=== PATIENT | female | born 1975 | race Caucasian/White ===

== ENCOUNTER 2016-10-08 04:00 | Inpatient (IN) | payer OTHER ==
--- NOTE | ~2016-10-08 | HP ---
Unit #: [id number] #: [id number] Patient: CARRIE MCDANIELS [id number] [facility] [address] [place] [address] [id number] MR#: [id number] NAME: CARRIE MCDANIELS ROOM: P258 Age: 41 Sex: F Admission Date: 10/08/2016 : 1975 Attending Physician: Ramiro Anglin M.D. Admitting Physician: Ramiro Anglin M.D. Primary Care Physician: Primary Care Physician No HISTORY AND PHYSICAL HISTORY OF PRESENT ILLNESS Carrie is a 41 year old admitted to [address] [place] [address] with depression and verbalizing wanting to hurt herself. She has had other admissions to this facility for the same. PAST MEDICAL HISTORY 1. Patient reports a recent diagnosis of pneumonia. She was started on Levaquin approximately 4 days prior to this admission. 2. Long history of poly-illicit substance abuse. She continues to be clean and sober. 3. Obesity. 4. Asthma. 5. Hyperlipidemia. PAST SURGICAL HISTORY Cholecystectomy. ALLERGIES Penicillin. SOCIAL HISTORY Smokes 1 pack per day. Denies alcohol. Has a history of illicit drug use but denies anything currently. FAMILY HISTORY Medically noncontributory. REVIEW OF SYSTEMS CONSTITUTIONAL: No fever or chills. HEENT: Denies any sore throat, ear pain or runny nose. CARDIOVASCULAR: Denies chest pain, irregular heart rhythm or palpitations. CHEST: Denies shortness of breath or cough. No hemoptysis. GASTROINTESTINAL: Denies nausea, vomiting, diarrhea or chronic constipation. ENDOCRINE: Denies history of increased thirst or urination. No recent significant weight loss or gain. GENITOURINARY: Denies dysuria, frequency, or hematuria. SKIN: Denies any rashes. HEMATOLOGIC: Denies history of increased bleeding or bruising. MUSCULOSKELETAL: Denies any hot, swollen joints. No generalized muscle pain. NEUROLOGIC: Denies problems with vision or speech. No frequent, severe headaches. No numbness, tingling or weakness in any extremities. Denies Unit #: [id number] #: [id number] Patient: CARRIE MCDANIELS loss of bladder or bowel control. CURRENT MEDICATIONS 1. Prozac 60 mg daily. 2. Zyprexa 20 mg daily. 3. Desyrel 100 mg q.h.s. 4. Neurontin 600 mg t.i.d. 5. Combivent inhaler p.r.n. 6. Ativan p.r.n. 7. Vistaril p.r.n. 8. Milk of Magnesia p.r.n. 9. Maalox p.r.n. 10. Tylenol p.r.n. 11. Levaquin 500 mg p.o. daily. PHYSICAL EXAMINATION GENERAL: Alert, well-nourished, in no apparent distress. VITAL SIGNS: Blood pressure 113/56, heart rate 80, respirations 16, temperature 98.6. WEIGHT: 177. HEIGHT: 5 feet 5 inches. SKIN: Warm and dry without rash or lesion. HEENT: Normocephalic. TMs not viewed. Oral and nasal passages clear. Conjunctivae clear. PERRLA. EOMs intact. NECK: Supple without lymphadenopathy or thyromegaly. HEART: Regular rate and rhythm without murmur. LUNGS: Clear. ABDOMEN: Soft, nontender. : Not done. EXTREMITIES: No evidence of cyanosis, clubbing or edema. Moves all without focal deficit. NEUROLOGICAL: Grossly within normal limits. Cranial Nerves: II: Visual cantrell are intact. III, IV AND : Extraocular movements are intact. Pupils are equal, round and reactive to light. V: Facial sensation is grossly normal. VII: Facial movements and expression are normal. VIII: Auditory acuity grossly intact. IX, X: Uvula is midline. Phonation is normal. XI: Patient shrugs shoulders and turns head normally. XII: Tongue protrudes in the midline. Sensory and Motor Function: Sensory and motor sensation is grossly normal. Motor: moves all extremities well. Coordination: Gait is normal. Deep Tendon Reflexes: Intact. IMPRESSION 1. Psychiatric admission. 2. Patient was recently diagnosed with pneumonia by her report. X-ray is not available at this time. RECOMMENDATIONS PSYCHIATRIC: Per psychiatrist. MEDICAL: 1. See no contraindications to participate in facility's activities. 2. Finish regimen of Levaquin. MEDICAL PROGNOSIS Good. Unit #: [id number] #: [id number] Patient: CARRIE MCDANIELS MEDICAL CONDITION Stable. Dictated by... Vidya Edomnds P.A.-C. for Yareli Lima M.D. OTIS/dzneville HALL: 10/08/2016 19:22 TD: 10/08/2016 20:12 JOB #: [id number] HISTORY AND PHYSICAL Page 1 of 1 X Vidya Edmonds HISTORY AND PHYSICAL
== END 2016-10-09 13:00 | disposition home or self-care (01) | DRG 885 ==
LOC: P2L 12:27
DX: F33.2 Major depressive disorder, recurrent severe without psychotic features (principal); E78.5 Hyperlipidemia, unspecified; F41.9 Anxiety disorder, unspecified; F12.20 Cannabis dependence, uncomplicated; Z81.8 Family history of other mental and behavioral disorders; Z91.5 Personal history of self-harm; J45.909 Unspecified asthma, uncomplicated; E66.9 Obesity, unspecified; Z88.0 Allergy status to penicillin; Z90.49 Acquired absence of other specified parts of digestive tract; F17.210 Nicotine dependence, cigarettes, uncomplicated

== ENCOUNTER 2016-10-09 16:14 | Inpatient (IN) | payer OTHER ==
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
--- NOTE | ~2016-10-09 | DS ---
Unit #: [id number] #: [id number] Patient: ROJAS MCDANIELS [id number] [place] [address] [id number] I MR#: [id number] NAME: ROJAS MCDANIELS ROOM[facility] Age: 41 Sex: F Admission Date: 10/09/2016 : 1975 Discharge Date: 10/14/2016 Attending Physician: Alfred Jimenez M.D. Primary Care Physician: Generic Doctor Not In System DISCHARGE SUMMARY REASON FOR ADMISSION Depression and anxiety. DIAGNOSTIC STUDIES LABORATORY RESULTS: Unremarkable. HOSPITAL COURSE The patient was admitted to inpatient unit on 10/09/2016 and discharged on 10/14/2016. The patient was treated on the inpatient unit with group therapy, individual therapy, and medication management. The patient was responsive to treatment. Subsequently, the patient was discharged with a plan to follow up in outpatient program. DISCHARGE MEDICATIONS Vistaril 50 mg t.i.d. for anxiety, Thorazine 100 mg t.i.d. for mood stabilization, Neurontin 800 mg t.i.d. for mood stabilization and anxiety, Sinequan 200 mg at bedtime for sleep, Seroquel 200 mg b.i.d. for mood stabilization, and Protonix 20 mg daily for GERD. The patient needed 2 antipsychotics, Thorazine and Seroquel as the patient failed Thorazine, Seroquel, Risperdal alone and needed a combination of medication. The patient is not a candidate for Clozaril. Recommending to taper off Thorazine once the patient is stable for 6 months. DISCHARGE DIAGNOSES Psychiatric: 1. Bipolar mood disorder, recurrent, depressed, F31.9. 2. Anxiety disorder, not otherwise specified, F40.01. Secondary diagnosis: Deferred. Medical diagnosis: Gastroesophageal reflux disease. Stressors. Psychosocial stressors. DISCHARGE INSTRUCTIONS The patient is to follow up in outpatient clinic as per social services counselor. CONDITION ON DISCHARGE The patient was pleasant and cooperative. Denied any psychotic symptom or any suicidal ideation. PROGNOSIS Guarded. Unit #: [id number] #: [id number] Patient: ROJAS MCDANIELS DIET AND ACTIVITY As tolerated. Dictated by... Alfred Jimenez M.D. YANICK/migel TD: 10/14/2016 23:27 JOB #: [id number] DISCHARGE SUMMARY Page 1 of 1 X Alfred Jimenez MD DISCHARGE SUMMARY
--- NOTE | ~2016-10-09 | PN ---
Unit #: [id number] #: [id number] Patient: ROJAS MCDANIELS [id number] [facility] [address] [place] [address] [id number] I MR#: [id number] NAME: ROJAS MCDANIELS ROOM: [facility] Age: 41 Sex: F Admission Date: 10/09/2016 : 1975 Attending Physician: Alfred Jimenez M.D. Admitting Physician: Alfred Jimenez M.D. Primary Care Physician: Generic Doctor Not In System [employer] PROGRESS NOTES DATE 10/11/2016 DISCUSSION Ms. Butler is a 41-year-old female seen on 10/11/2016. The patient interviewed, chart reviewed. Obtained information from nursing staff. The patient continues to report feeling anxious, nervous but feeling somewhat better (1) report medication is helping her. Currently on combination of Neurontin, Seroquel, Thorazine. No side effects from medication but reported still having severe anxiety in the morning and in the evening. Complete review of systems unremarkable. MENTAL STATUS EXAMINATION General appearance, the patient dressed casually. Attention span and concentration fair. Oriented to place and person. Mood and affect labile. Speech rapid, pressured. Thought process circumstantial. The patient denied any thoughts of harming self or others. Recent and remote memory poor. Insight and judgement poor. DIAGNOSES 1. Bipolar mood disorder NOS 2. Anxiety disorder NOS ASSESSMENT/PLAN Advise to continue with current medication and therapeutic protocol. If needed consider further adjustment of medication. Advise Thorazine 100 mg q. 6 hours p.r.n. for severe anxiety or agitation. Dictated by... Flako Castle/hayde TD: 10/14/2016 02:27 JOB #: [id number] Unit #: [id number] #: [id number] Patient: ROJAS MCDANIELS PROGRESS NOTES Page 1 of 1 X Alfred Jimenez MD PROGRESS NOTE
--- NOTE | ~2016-10-09 | PN ---
Unit #: [id number] #: [id number] Patient: ROJAS MCDANIELS [id number] [facility] [address] [place] [address] [id number] I MR#: [id number] NAME: ROJAS MCDANIELS ROOM: [facility] Age: 41 Sex: F Admission Date: 10/09/2016 : 1975 Attending Physician: Alfred Jimenez M.D. Admitting Physician: Flako Castle PROGRESS NOTES DATE OF SERVICE: 10/12/2016 DISCUSSION Ms. Bui is a 41-year-old female, seen on 10/12/2016. The patient interviewed, chart reviewed, and obtained information from nursing staff. The patient reported that she is still having problem with anxiety in the morning and at night as well as getting up in the middle of the night, but overall reports feeling better and making progress. Vital signs stable; temperature 98.1, pulse 76, and blood pressure 106/60. Complete review of systems unremarkable. MENTAL STATUS EXAMINATION General appearance, the patient dressed casually. Attention span and concentration, fair. Oriented in place and person. Mood and affect, labile. Speech, rapid. Thought process, circumstantial. The patient denied any thoughts of harming self or others, but guarded. Recent and remote memory, poor. Insight and judgment, poor. DIAGNOSES 1. Bipolar mood disorder, not otherwise specified. 2. Anxiety disorder, not otherwise specified. ASSESSMENT AND PLAN Advised to continue with current medication with a plan to increase Seroquel to 200 mg at bedtime and continue with Seroquel 100 mg in the morning and noon. Advised to continue with Neurontin and Thorazine. Advised to increase doxepin to 200 mg at bedtime to help with anxiety, sleep, and depression. We will continue to follow. Dictated by... Flako Castle/migel TD: 10/13/2016 23:57 JOB #: [id number] Unit #: [id number] #: [id number] Patient: ROJAS MCDANIELS PROGRESS NOTES Page 1 of 1 X Alfred Jimenez MD PROGRESS NOTE
--- NOTE | ~2016-10-09 | PN ---
Unit #: [id number] #: [id number] Patient: CARRIE SANCHEZ [id number] [facility] [address] [place] [address] [id number] I MR#: [id number] NAME: CARRIE SANCHEZ ROOM: [facility] Age: 41 Sex: F Admission Date: 10/09/2016 : 1975 Attending Physician: Alfred Jimenez M.D. Admitting Physician: Alfred Jimenez M.D. Primary Care Physician: Generic Doctor Not In System [facility] PROGRESS NOTES DATE OF SERVICE 10/10/16 DISCUSSION Ms. Carrie Sanchez is a 41-year-old female seen on 10/10/16. Patient interviewed, chart reviewed, I obtained information from nursing staff. Patient anxious, nervous, mood was labile, repeatedly asking that she needed injection to control her anxiety. Patient reports that medication is not helping. COMPLETE REVIEW OF SYSTEMS Unremarkable. MENTAL STATUS EXAMINATION GENERAL APPEARANCE: Patient dressed casually. ATTENTION SPAN AND CONCENTRATION: Fair. Oriented in place and person. MOOD AND AFFECT: Labile. SPEECH: Monotone. THOUGHT PROCESS: Hornick. Patient denied any thoughts of harming self or others, but still very anxious, nervous, agitated. RECENT AND REMOTE MEMORY: Poor. INSIGHT AND JUDGMENT: Poor. DIAGNOSES Major depressive disorder, recurrent Anxiety disorder, NOS Cannabis abuse ASSESSMENT/PLAN Advised to continue with current combination of medication of Neurontin, Seroquel, Thorazine and will stop Prozac and Zyprexa. We will continue to follow. If needed, consider further adjustment on medication. Dictated by... Flako Castle/cadence TD: 10/10/2016 23:23 Unit #: [id number] #: [id number] Patient: CARRIE SANCHEZ JOB #: [id number] [facility] PROGRESS NOTES Page 1 of 1 X Alfred Jimenez MD PROGRESS NOTE
--- NOTE | ~2016-10-09 | HP ---
Unit #: [id number] #: [id number] Patient: CARRIE MCDANIELS [id number] [facility] [address] [place] [address] [id number] I MR#: [id number] NAME: CARRIE MCDANIELS ROOM: P258 Age: 41 Sex: F Admission Date: 10/09/2016 : 1975 Attending Physician: Alfred Jimenez M.D. Admitting Physician: Alfred Jimenez M.D. Primary Care Physician: Generic Doctor Not In System HISTORY AND PHYSICAL Carrie is a 41 year old admitted to [facility]. She was just discharged from this facility. Patient was seen and H and P dated 10/08/16 was reviewed. This is current. No changes. Please see H and P dated 10/08/16. Dictated by... Vidya Edmonds P.A.-C. for Flako Zarco/shira TD: 10/10/2016 16:12 JOB #: [id number] HISTORY AND PHYSICAL Page 1 of 1 X Vidya Edmonds HISTORY AND PHYSICAL
--- NOTE | ~2016-10-09 | PN ---
Unit #: [id number] #: [id number] Patient: ROJAS MCDANIELS [id number] [facility] [address] [place] [address] [id number] I MR#: [id number] NAME: ROJAS MCDANIELS ROOM: [facility] Age: 41 Sex: F Admission Date: 10/09/2016 : 1975 Attending Physician: Alfred Jimenez M.D. Admitting Physician: Alfred Jimenez M.D. Primary Care Physician: Generic Doctor Not In System [facility] PROGRESS NOTES DATE 10/13/2016 DISCUSSION Ms. Butler is a 41-year-old female, seen on 10/13/2016. The patient interviewed, chart reviewed, and obtained information from the nursing staff. The patient was compliant and cooperative, reports still having problem with the anxiety, but overall making progress. Denied any thoughts of harming self or others, no side effects from medication. REVIEW OF SYSTEMS Complete review of systems unremarkable. MENTAL STATUS EXAMINATION General appearance: Patient dressed casually. Attention span and concentration, fair. Oriented in time, place, and person. Mood and affect, labile. Speech, monotone. Thought process, concrete. The patient denied any thoughts of harming self or others. Recent and remote memory, poor. Insight and judgment, poor. DIAGNOSES 1. Bipolar mood disorder, NOS. 2. Anxiety disorder, NOS. ASSESSMENT/PLAN Advised to continue with the current medication and therapeutic protocol, and if needed consider further adjustment of medication with the plan to consider discharge next week. Dictated by... Flako Castle/dedrick TD: 10/15/2016 05:52 JOB #: [id number] Unit #: [id number] #: [id number] Patient: ROJAS MCDANIELS [facility] PROGRESS NOTES Page 1 of 1 X Alfred Jimenez MD PROGRESS NOTE
== END 2016-10-14 11:00 | disposition home or self-care (01) | DRG 885 ==
LOC: P2L 18:13
DX: F33.2 Major depressive disorder, recurrent severe without psychotic features (principal); E78.5 Hyperlipidemia, unspecified; F12.20 Cannabis dependence, uncomplicated; E66.9 Obesity, unspecified; J45.909 Unspecified asthma, uncomplicated; F41.9 Anxiety disorder, unspecified
CPT/HCPCS: J2060

== ENCOUNTER 2016-11-26 23:00 | Inpatient (IN) | payer OTHER ==
[~2016-11-26] VITALS: Ht 165.1 cm; Wt 81.6 kg
--- NOTE | ~2016-11-26 | PN ---
Unit #: [id number] #: [id number] Patient: CARRIE SANCHEZ [id number] [facility] [address] [place] [address] [id number] I MR#: [id number] NAME: CARRIE SANCHEZ. ROOM: [facility] Age: 41 Sex: F Admission Date: 11/27/2016 : 1975 Attending Physician: Alfred Jimenez M.D. Admitting Physician: Alfred Jimenez M.D. Primary Care Physician: Primary Care Physician Kim SCHERER NOTES DATE OF SERVICE 11/30/2016 DISCUSSION Ms. Carrie Sanchez is a 41-year-old female seen on 11/30/2016. Patient interviewed, chart reviewed. Obtained information from nursing staff. Patient was sad, dysphoric. Mood was labile. Patient was locked out of her room this morning for safety. Currently on paper gown. The patient tried to harm herself yesterday. Sad, depressed. Mood labile. Continues to focus on getting her Ativan. Complete review of systems unremarkable. MENTAL STATUS EXAMINATION General appearance, patient dressed casually. Attention span and concentration fair to poor. Oriented to place and person. Mood and affect labile. Speech monotone. Thought process concrete. Patient denied any thoughts of harming self or others but recent self-harming behavior. Recent and remote memory poor. Insight and judgement poor. DIAGNOSIS Bipolar mood disorder NOS. ASSESSMENT/PLAN Advise to continue with current medication with a plan to try propranolol 20 mg t.i.d. for anxiety. If needed consider further adjustment of medication. Continue with current precaution to keep patient safe. Dictated by... Flako Castle/hayde TD: 12/02/2016 03:17 JOB #: [id number] Unit #: [id number] #: [id number] Patient: CARRIE SANCHEZ KERLINE SCHERER NOTES Page 1 of 1 X Alfred Jimenez MD PROGRESS NOTE
--- NOTE | ~2016-11-26 | PA ---
Unit #: [id number] #: [id number] Patient: CARRIE SANCHEZ [id number] [facility] [address] [place] [address] [id number] I MR#: [id number] NAME: CARRIE SANCHEZ. ROOM: [facility] Age: 41 Sex: F Admission Date: 11/27/2016 : 1975 Date of Assessment: 11/27/2016 Attending Physician: Alfred Jimenez M.D. Admitting Physician: Alfred Jimenez M.D. Primary Care Physician: Primary Care Physician No PSYCHIATRIC ASSESSMENT INFORMANT(S) Patient, reliability fair. Chart, reliability good. CHIEF COMPLAINT Suicidal ideation, depression. HISTORY OF PRESENT ILLNESS Ms. Carrie Sanchez is a 41-year-old female well known to us from her last admission in October 2016. The patient reported feeling anxious, nervous, sad, depressed. The patient reported that she called her ex-boyfriend and they broke up 2 months ago. The patient reported that she has been tearful, anxious, sad, depressed. The patient reported that she has a COPD and emphysema and feels that she is going to . The patient denied any homicidal ideation and denied any auditory or visual hallucinations. The patient reported that she has been using marijuana and said that she has had 2 shots of vodka. Reports last use on 11/22/2016. The patient reported that she has not been taking her medication as prescribed. The patient currently on disability. The patient has GED. Reports currently homeless, staying temporarily with friends. Reported depressive symptoms such as crying. Hopelessness, worthlessness, suicidal ideation. Needing inpatient admission at this time for psychiatric stabilization. PAST PSYCHIATRIC HISTORY Remarkable for history of previous inpatient treatment at [facility], inpatient was [facility] in 2013 and 2014. FAMILY/SOCIAL HISTORY The patient currently has poor support system. Homelessness. No known history of any abuse. No history of legal charges. MEDICAL HISTORY Remarkable for history of COPD, emphysema, high cholesterol, and degenerative disk disease. ALLERGIES No known drug allergies. SUBSTANCE ABUSE HISTORY The patient reports tobacco use, age of onset 14; alcohol, age of onset 14; and marijuana, age of onset 16; crack cocaine, age of onset 24; LSD age of onset 13. Longest period of sobriety 1 year. The patient denied any blackouts, HIV, hepatitis, or any withdrawal symptom. Unit #: [id number] #: [id number] Patient: CARRIE SANCHEZ MEDICATION HISTORY The patient noncompliant with medication. REVIEW OF SYSTEMS HEENT: Eyes: Clear. Ears, Nose, Mouth, and Throat: Clear. CARDIOVASCULAR/RESPIRATORY: Unremarkable. GI/: Unremarkable. SKIN/LYMPH NODE/NEUROLOGICAL/ENDOCRINE/HEMATOLOGICAL/ALLERGIC/IMMUNOLOGICAL: Unremarkable. MUSCULOSKELETAL: Muscle strength and tone: No atrophy or abnormal movement. Gait normal. MENTAL STATUS EXAMINATION Constitutional: Measurement of vital signs: 97.3, 98, 22. Oxygen saturation 96%, blood pressure 135/71. Height 5 feet 5 inches. Weight 180 pounds. General Appearance: The patient dressed casually. The patient did not show any facial deformity. Musculoskeletal: Please see above. Psychiatric examination: Description of speech: Rapid in rate, pressured. Description of thought process: Circumstantial. Description of association: Intact. Description of abnormal psychotic thinking: The patient denied any hallucination or delusions but suicidal ideation. Depression, anxiety, mood lability, substance abuse. Description of the patient's judgment: Concerning everyday activity, poor; social situation, poor; concerning psychiatric condition, poor. Complete Mental Status Examination: Oriented in time, place, and person. Recent and remote memory fair. Attention span, concentration: Fair. Language: Able to name object, repeat phrases. Fund of knowledge: Aware of current event, past history. Vocabulary: Intact. Mood and affect: Sad, dysphoric. Insight and judgment: Fair to poor. ASSETS AND LIABILITIES Assets: The patient articulate. Able to take care of her ADL. Liabilities: History of depression, substance abuse. ADMITTING DIAGNOSES PSYCHIATRIC: Major depressive disorder, recurrent, severe, F33.2. Anxiety disorder not otherwise specified, F40.01. Cannabis abuse, moderate, F12.20 SECONDARY: Deferred. MEDICAL: Chronic obstructive pulmonary disease. Emphysema. High cholesterol. Degenerative disk disease. STRESSORS: Psychosocial stressor. PSYCHIATRIC PLAN/TREATMENT GOALS/DISCHARGE PLANNING 1. Advised to admit the patient on the inpatient unit. Provide safe, supportive, structured environment. 2. Ordered labs: CBC, CMP, UA, UDS. 3. Precaution for self-harm. 4. The patient to resume home medications. If needed, consider further adjustment of medication. The patient to attend group therapy, individual therapy, structured milieu. 5. Treatment goal: To attain euthymic mood, gain insight into her Unit #: [id number] #: [id number] Patient: CARRIE SANCHEZ problem, learn coping skill. 6. Discharge plan: Plan to stabilize the patient and consider followup in outpatient program. ESTIMATED LENGTH OF STAY 3 to 5 days. Dictated by... Flako Castle/matti TD: 11/28/2016 10:56 JOB #: [id number] PSYCHIATRIC ASSESSMENT Page 1 of 1 X Alfred Jimenez MD X PSYCHIATRIC ASSESSMENT
--- NOTE | ~2016-11-26 | PN ---
Unit #: [id number] #: [id number] Patient: ROJAS MCDANIELS [id number] [facility] [address] [place] [address] [id number] MR#: [id number] NAME: ROJAS MCDANIELS. ROOM: [facility]114 Age: 41 Sex: F Admission Date: 11/27/2016 : 1975 Attending Physician: Alfred Jimenez M.D. Admitting Physician: Alfred Jimenez M.D. Primary Care Physician: Primary Care Physician Kim CHURCHILL PROGRESS NOTES DATE 11/28/2016 DISCUSSION Ms. Butler is a 41-year-old female seen on 11/28/2016. Patient interviewed. Chart reviewed. Obtained information from nursing staff. Patient reports that she needs to be here for 2 weeks. Patient reported feeling anxious, nervous, sad, depressed but reports feeling better. Patient continues to be focused on getting her medication, Ativan. Patient was ordered only p.r.n. Ativan. Currently on combination of doxepin, Zyprexa, Neurontin, Thorazine, Prozac. Patient tolerating medication fairly well. No side effects from medication. Patient's vital signs 98.8, 22, 115/75. Complete review of system unremarkable. MENTAL STATUS EXAMINATION General appearance, patient dressed in hospital attire. Attention span, concentration fair. Oriented in time, place and person. Mood and affect labile. Speech monotone. Thought process concrete. Patient reported passive SI. Denied any homicidal ideation, somewhat guarded. Recent and remote memory poor. Insight and judgement poor. DIAGNOSES 1. Major depressive disorder, recurrent, severe. 2. Anxiety disorder NOS. ASSESSMENT/PLAN Advised to continue with current medication and therapeutic protocol. If needed, consider further adjustment of medication. Dictated by... Flako Castle/shira TD: 11/28/2016 18:29 JOB #: [id number] Unit #: [id number] #: [id number] Patient: ROJAS MCDANIELS [facility] PROGRESS NOTES Page 1 of 1 X Alfred Jimenez MD X PROGRESS NOTE
--- NOTE | ~2016-11-26 | CO ---
Unit #: [id number] #: [id number] Patient: ROJAS MCDANIELS [id number] [place] [address] [id number] I MR#: [id number] NAME: ROJAS MCDANIELS. ROOM: [facility] Age: 41 Sex: F Admission Date: 11/27/2016 : 1975 Attending Physician: Alfred Jimenez M.D. Primary Care Physician: Primary Care Physician No Consultation Date: 12/01/2016 CONSULTATION REPORT JOB NOTE: VERIFY DATE OF SERVICE. REASON FOR EVALUATION Dysuria, abnormal UA. HISTORY OF PRESENT ILLNESS The patient is a 41-year-old female, admitted secondary to acute psychiatric inpatient admission/mental illness. We were asked to evaluate secondary to dysuria. The patient underwent urinalysis history of 2+ positive for bacteria as well as leukocyte esterase noted and we were asked to evaluate. At the present time, the patient is comfortable otherwise with minimal complaints of dysuria, discomfort with urination. Does have prior history of UTIs in the past. ALLERGIES Noted to be significant for penicillin as well as aspirin. PHYSICAL EXAMINATION GENERAL: Awake, alert, oriented to person, place, and time. Well built, well nourished. Does not appear to be in any acute distress. HEAD: Atraumatic. Normocephalic. EYES: Bilateral extraocular muscles are normal. Pupils equal, reactive to light and accommodation. Sclerae are normal. No jaundice. NECK: Neck is supple. No neck rigidity. No thyromegaly. No carotid bruit. No JVD. Oral mucosa is moist. CHEST: Bilateral vesicular breathing. Clear to auscultation. No basilar rales. CARDIOVASCULAR: S1 and S2 normal. No murmur, no gallop, no rub. ABDOMEN: Soft, nontender. No organomegaly. Bowel sounds are normal. No hernia, no masses, no rebound, no guarding. EXTREMITIES: No pitting edema. No calf tenderness. Extremity pulses, including dorsalis pedis, have good volume. BACK: Normal spine curvature. No spine tenderness. No costovertebral angle tenderness. CARDIAC MONITOR: Cranial nerves normal bilaterally. Motor function bilaterally symmetric and normal. Sensory system normal. SKIN: Warm and dry. INITIAL IMPRESSION 1. Abnormal urinalysis. 2. Dysuria. Unit #: [id number] #: [id number] Patient: ROJAS MCDANIELS PLAN We will await final urine culture as her UA is equivocal at this point in time. If urine culture is positive for bacteria, certainly antibiotics therapy will be tapered at this point in time, I will initiate Cipro 500 mg p.o. b.i.d. time a total of 3 days, once final urine culture results are obtained, appropriate antibiotic regimen may be altered pending sensitivity. Thank you, Dr. Jimenez, for this consultation. Dictated by... Flako Zarco/migel TD: 12/01/2016 18:06 JOB #: [id number] CONSULTATION REPORT Page 1 of 1 X Yareli Lima MD X CONSULTATION REPORT
--- NOTE | ~2016-11-26 | HP ---
Unit #: [id number] #: [id number] Patient: CARRIE MCDANIELS [id number] [place] [address] [id number] I MR#: [id number] NAME: CARRIE MCDANIELS. ROOM: [facility] Age: 41 Sex: F Admission Date: 11/27/2016 : 1975 Attending Physician: Aflred Jimenez M.D. Admitting Physician: Alfred Jimenez M.D. Primary Care Physician: Primary Care Physician No HISTORY AND PHYSICAL HISTORY OF PRESENT ILLNESS Carrie is a 41-year-old female admitted on 11/27/[address] [place] [address] for suicidal ideation and depression. PAST MEDICAL HISTORY COPD, obesity and hyperlipidemia PAST SURGICAL HISTORY Cholecystectomy. SOCIAL HISTORY Reports smokes one pack or more cigarettes daily. Denies alcohol or illegal drug use. She is currently single and living alone. FAMILY HISTORY Noncontributory. REVIEW OF SYSTEMS CONSTITUTIONAL: No fever or chills. HEENT: Denies any sore throat, ear pain or runny nose. CARDIOVASCULAR: Denies chest pain, irregular heart rhythm or palpitations. CHEST: Denies shortness of breath or cough. No hemoptysis. GASTROINTESTINAL: Denies nausea, vomiting, diarrhea or chronic constipation. ENDOCRINE: Denies history of increased thirst or urination. No recent significant weight loss or gain. GENITOURINARY: Denies dysuria, frequency, or hematuria. SKIN: Denies any rashes. HEMATOLOGIC: Denies history of increased bleeding or bruising. MUSCULOSKELETAL: Denies any hot, swollen joints. No generalized muscle pain. NEUROLOGIC: Denies problems with vision or speech. No frequent, severe headaches. No numbness, tingling or weakness in any extremities. Denies loss of bladder or bowel control. CURRENT MEDICATIONS Zyprexa, Neurontin, Zofran, Bentyl, Vistaril. ALLERGIES No known drug allergies. Unit #: [id number] #: [id number] Patient: CARRIE MCDANIELS PHYSICAL EXAMINATION GENERAL: Alert, oriented, in no acute distress. VITAL SIGNS: Blood pressure 137/86, heart rate 128. HEIGHT: 5 foot 11 inches. WEIGHT: 168 pounds. SKIN: Warm and dry without rash or lesion. HEENT: Normocephalic. TMs not viewed. Oral and nasal passages clear. Conjunctivae clear. PERRLA. EOMs intact. NECK: Supple without lymphadenopathy or thyromegaly. HEART: Regular rate and rhythm without murmur. LUNGS: Clear. ABDOMEN: Soft, nontender, without masses or hepatosplenomegaly. : Not done. EXTREMITIES: No evidence of cyanosis, clubbing or edema. Moves all without focal deficit. NEUROLOGICAL: Grossly within normal limits. Cranial Nerves: II: Visual cantrell are intact. III, IV AND : Extraocular movements are intact. Pupils are equal, round and reactive to light. V: Facial sensation is grossly normal. VII: Facial movements and expression are normal. VIII: Auditory acuity grossly intact. IX, X: Uvula is midline. Phonation is normal. XI: Patient shrugs shoulders and turns head normally. XII: Tongue protrudes in the midline. Sensory and Motor Function: Sensory and motor sensation is grossly normal. Motor: moves all extremities well. Coordination: Gait is normal. Deep Tendon Reflexes: Intact. IMPRESSION Psychiatric admission. RECOMMENDATIONS Psychiatric, per psychiatrist. MEDICAL: I see no contraindications to participating in facility's activities. MEDICAL PROGNOSIS Good. MEDICAL CONDITION Stable. Dictated by... Monica Avelar/hayde TD: 11/28/2016 00:58 JOB #: [id number] Unit #: [id number] #: [id number] Patient: CARRIE MCDANIELS HISTORY AND PHYSICAL Page 1 of 1 X JADEN LINO APRN X HISTORY AND PHYSICAL
--- NOTE | ~2016-11-26 | PN ---
Unit #: [id number] #: [id number] Patient: CARRIE SANCHEZ [id number] [facility] [address] [place] [address] [id number] I MR#: [id number] NAME: CARRIE SANCHEZ. ROOM: [facility] Age: 41 Sex: F Admission Date: 11/27/2016 : 1975 Attending Physician: Alfred Jimenez M.D. Admitting Physician: Alfred Jimenez M.D. Primary Care Physician: Primary Care Physician Kim SCHERER NOTES DATE OF SERVICE 12/01/2016 DISCUSSION Ms. Carrie Sanchez is a 41-year-old female seen on 12/01/2016. Patient interviewed, chart reviewed. Obtained information from nursing staff. Patient became mad, angry, upset, yelling, screaming on the top of her lungs. When explained that she will not be getting any benzodiazepine. I talked to the patient's daughter with the patient's permission who reported that patient has a history of benzodiazepine abuse. The patient's vital signs 97.8, 87, 20, 132/73. The patient tried to harm herself this weekend. Behavior impulsive, manipulative, cursing, mood lability. Complete review of systems unremarkable. MENTAL STATUS EXAMINATION General appearance, patient dressed casually. Attention span and concentration poor. Oriented to place and person. Mood and affect labile. Speech loud. Thought process circumstantial, guarded, paranoid. Mood lability, withdrawn. Denied any thoughts of harming self or others but recent self-harm. Recent and remote memory poor. Insight and judgement poor. DIAGNOSES Bipolar mood disorder NOS ASSESSMENT/PLAN Advise to continue with current medication and therapeutic protocol. advise to discontinue doxepin and start Seroquel 100 mg at bedtime, If needed consider further adjustment of medication. Dictated by... Flako Castle/hayde TD: 12/03/2016 04:27 JOB #: [id number] Unit #: [id number] #: [id number] Patient: CARRIE SANCHEZ PEAMALLIKA PROGRESS NOTES Page 1 of 1 X Alfred Jimenez MD PROGRESS NOTE
--- NOTE | ~2016-11-26 | DS ---
Unit #: [id number] #: [id number] Patient: ROJAS SANCHEZ [id number] [facility] [address] [place] [address] [id number] MR#: [id number] NAME: ROJSA SANCHEZ. ROOM: [facility] Age: 41 Sex: F Admission Date: 11/27/2016 : 1975 Discharge Date: 12/03/2016 Attending Physician: Alfred Jimenez M.D. Primary Care Physician: Primary Care Physician No DISCHARGE SUMMARY REASON FOR ADMISSION Suicidal ideation, depression. DIAGNOSTIC STUDIES LABORATORY RESULTS: Unavailable, the patient refused. HISTORY OF PRESENT ILLNESS Ms. Ramya Sanchez is a 41-year-old female, admitted on 11/27/2016 and discharged on 12/03/2016. The patient was treated on the inpatient unit with expressive therapy, psychotherapy, structured milieu, and medication management. The patient showed improvement. Denied any suicidal or homicidal ideation, but continues to be focused on getting benzodiazepine, Ativan. The patient has a history of abusing benzodiazepine according to her as well as according to her family. The patient reported that she will go to [facility] or any other Hospital where she can get the Ativan. The patient was sleeping good, compliant with medication. No side effects from medication, but continues medication seeking behavior. The patient was continued on Prozac, Zyprexa, Sinequan, and Neurontin. Subsequently, the patient was discharged on following medication with a plan to follow up in outpatient program. DISCHARGE MEDICATIONS Seroquel 200 mg at bedtime for mood stabilization and psychosis, Inderal 20 mg t.i.d. for anxiety, Zyprexa was discontinued, Neurontin 800 mg t.i.d. for chronic pain and anxiety, Prozac 20 mg daily for depression. DISCHARGE DIAGNOSES Psychiatric: Bipolar mood disorder, recurrent, depressed, F31.9; anxiety disorder, not otherwise specified, F40.9. Secondary diagnosis: Deferred. Medical diagnosis: Gastroesophageal reflux disease. Stressors: Psychosocial stressor. DISCHARGE INSTRUCTIONS The patient to follow up in outpatient clinic as per older adult social work specialist. CONDITION ON DISCHARGE The patient was pleasant and cooperative. PROGNOSIS Unit #: [id number] #: [id number] Patient: ROJAS SANCHEZ Guarded. DIET AND ACTIVITY As tolerated. Dictated by... AlfredFlako Do TD: 12/04/2016 03:45 JOB #: [id number] DISCHARGE SUMMARY Page 1 of 1 X Alfred Jimenez MD DISCHARGE SUMMARY
--- NOTE | ~2016-11-26 | CO ---
Unit #: [id number] #: [id number] Patient: ROJAS MCDANIELS [id number] [place] [address] [id number] I MR#: [id number] NAME: ROJAS MCDANIELS. ROOM: [facility] Age: 41 Sex: F Admission Date: 11/27/2016 : 1975 Attending Physician: Alfred Jimenez M.D. Primary Care Physician: Primary Care Physician No Consultation Date: 11/27/2016 CONSULTATION REPORT HISTORY OF PRESENT ILLNESS Ramya reports she was recently diagnosed with COPD in the ER [place] and was told to start inhalers; however, she does not have a prescription for these and does not recall what these inhalers were. She was also told that she should be started on steroids for shortness of breath. She does have complaints of shortness of air with exertion. No chest pain. No other complaints. PHYSICAL EXAMINATION CARDIAC: Regular rate and rhythm. No murmurs, gallops, or rubs. RESPIRATORY: Clear to auscultation bilaterally. ASSESSMENT AND PLAN chronic obstructive pulmonary disease. We will begin Symbicort and albuterol. She does have some concerns about being able to use inhalers appropriately. I will also order a spacer for use with inhalers. Please provide education and evaluate for appropriate use. Dictated by... Monica Avelar/migel TD: 11/27/2016 23:28 JOB #: [id number] CONSULTATION REPORT Page 1 of 1 X JADEN LINO APRN X CONSULTATION REPORT
--- NOTE | ~2016-11-26 | PN ---
Unit #: [id number] #: [id number] Patient: CARRIE SANCHEZ [id number] [facility] [address] [place] [address] [id number] I MR#: [id number] NAME: CARRIE SANCHEZ. ROOM: [facility] Age: 41 Sex: F Admission Date: 11/27/2016 : 1975 Attending Physician: Alfred Jimenez M.D. Admitting Physician: Alfred Jimenez M.D. Primary Care Physician: Primary Care Physician Kim CHURCHILL PROGRESS NOTES DATE 11/29/2016 DISCUSSION Carrie Sanchez is a 41-year-old female seen on 11/29/2016. Patient interviewed. Chart reviewed. Obtained information from nursing staff. Patient was ____ quietly but when woken up for interview became very anxious. Reports that she needs Ativan. Patient was unable to give any information that she was Ativan before coming to the hospital. Patient is currently on multiple medication. Patient was explained that she is on multiple medication at this time and unable to start medication because of addictive nature. Patient has p.r.n. Ativan which was given 1 time dose. Patient reported that she does not want to be on Vistaril and Thorazine which was discontinued. Patient requested for discharge which was ordered but later making comments about unable to contract for safety and subsequently patient was placed on hold and patient was given Ativan 1 mg p.o. Complete review of system unremarkable. MENTAL STATUS EXAMINATION General appearance, patient dressed casually. Attention span, concentration fair. Oriented in time, place and person. Mood and affect labile. Speech rapid in rate, pressured. Thought process circumstantial. Association, denied any suicidal or homicidal ideation but very anxious, nervous, mood lability, attention seeking behavior. Recent and remote memory poor. Insight and judgement poor. Patient was also making comments about harming herself. Subsequently patient was placed on 72 hour hold. DIAGNOSIS Bipolar mood disorder NOS. ASSESSMENT/PLAN Advised to continue with current medication and therapeutic protocol. If needed, consider further adjustment of medication. Continue with the inpatient programming at this time. Dictated by... Flako Castle/shira Unit #: [id number] #: [id number] Patient: CARRIE SANCHEZ TD: 11/29/2016 20:33 JOB #: [id number] [facility] PROGRESS NOTES Page 1 of 1 X Alfred Jimenez MD PROGRESS NOTE
--- NOTE | ~2016-11-26 | PN ---
Unit #: [id number] #: [id number] Patient: CARRIE SANCHEZ [id number] [facility] [address] [place] [address] [id number] I MR#: [id number] NAME: CARRIE SANCHEZ. ROOM: [facility] Age: 41 Sex: F Admission Date: 11/27/2016 : 1975 Attending Physician: Alfred Jimenez M.D. Admitting Physician: Alfred Jimenez M.D. Primary Care Physician: Primary Care Physician Kim CHURCHILL PROGRESS NOTES DATE OF SERVICE 12/02/2016 DISCUSSION Ms. Carrie Sanchez is a 41-year-old female seen on 12/02/2016. The patient's mood was labile, sad, dysphoric, anxious, nervous. Having severe anxiety, mood lability. The patient tried to harm herself over the weekend. Complete Review of Systems: Unremarkable. MENTAL STATUS EXAMINATION General Appearance: The patient dressed casually. Attention span, concentration: Fair. Oriented in place and person. Mood and affect labile. Speech: Monotone. Thought process: [place]. The patient denied any thoughts of harming self or others. Recent and remote memory: Poor. Insight and judgment: Poor. DIAGNOSIS Bipolar mood disorder not otherwise specified. ASSESSMENT/PLAN Advised to continue with current medication and therapeutic protocol. If needed, consider further adjustment of medication. Dictated by... Flako Castle/matti TD: 12/03/2016 11:51 JOB #: [id number] Unit #: [id number] #: [id number] Patient: CARRIE SANCHEZ PROGRESS NOTES Page 1 of 1 X Alfred Jimenez MD X PROGRESS NOTE
[2016-11-30 11:50] LABS: URINE APPEARANCE CLOUDY; URINE BILIRUBIN NEG (NEG); URINE BLOOD 2+ (NEG); URINE COLOR YELLOW; URINE GLUCOSE NEG (NEG); URINE KETONE NEG (NEG); URINE LEUKOCYTE ESTERASE TRACE (NEG); URINE NITRATE NEG (NEG); URINE PH 6.5 (5-8); URINE PROTEIN NEG (NEG); URINE UROBILINOGEN 0.2 MG/DL (NEG)
[2016-11-30 11:52] LABS: URINE BACTERIA AUWI 2+ (NEGATIVE)
[2016-11-30 12:21] LABS: URINE MUCUS PRESENT
[2016-11-30 12:22] LABS: URINE SQUAMOUS EPITHELIAL CELL MANY /[HPF]
== END 2016-12-03 14:10 | disposition home or self-care (01) | DRG 885 ==
LOC: P1S 11-27 04:13
PROVIDERS: Psychiatry & Neurology Psychiatry
DX: F33.2 Major depressive disorder, recurrent severe without psychotic features (principal); R45.851 Suicidal ideations; F41.9 Anxiety disorder, unspecified; F12.20 Cannabis dependence, uncomplicated; J44.9 Chronic obstructive pulmonary disease, unspecified; E78.5 Hyperlipidemia, unspecified; Z90.49 Acquired absence of other specified parts of digestive tract; F17.210 Nicotine dependence, cigarettes, uncomplicated; R30.0 Dysuria; R82.90 Unspecified abnormal findings in urine
CPT/HCPCS: 81003